=== PATIENT | female | born 1960 ===

== ENCOUNTER 2024-12-27 13:52 | Outpatient (NON) | payer OTHER, SELFPAY ==
--- OUTSIDE RECORDS SUMMARY | 2024-12-27 16:12 | XMS_ITS | Referral Summary ---
Author Organization [facility] Address [address] [place] [id number] Care Team Providers Care Anesthesiologist Name Role Phone Klarissa Carr MD Primary Care Provider [phone] Encounters Date Type Department Care Team Description 10/29/2024 6:50 AM NANOFABRICATION SPECIALIST Lab [facility] Lab [address] [place] [phone] from Last 3 Months Allergies No known active allergies Medications No known medications Active Problems Problem Noted Date Diagnosed Date Encounter for screening colonoscopy 04/20/2024 Social History Tobacco Use Types Packs/Day Years Used Date Smoking Tobacco: Never Smokeless Tobacco: Never Tobacco Cessation:Counseling Given: Not Answered AUDIT-C Answer Date Recorded Q1: How often do you have a drink containing alcohol? Never 05/14/2024 Q2: How many drinks containi ng alcohol do you have on a typical day when you are drinking? Patient does not drink Q3: How often do you have si x or more drinks on one occasion? Never 05/14/2024 Personal Safety Answer Date Recorded Have you ever been in or are you currently in a harmful physical or emotional relationship or is someone making you feel afraid or unsafe? Denies 05/19/2024 Comments No Sex and Gender Information Value Date Recorded Sex Assigned at Not on file Legal Sex Female 7:45 PM NANOFABRICATION SPECIALIST Gender Identity Not on file Sexual Orientation Not on file Last Filed Vital Signs Vital Sign Reading Time Taken Comments Blood Pressure 116/80 05/19/2024 12:10 PM CDT Pulse 83 05/19/2024 12:10 PM CDT Temperature 36.1 C (97 F) 05/19/2024 11:56 AM CDT Respiratory Rate 18 05/19/2024 12:10 PM CDT Oxygen Saturation 99% 05/19/2024 12:10 PM CDT Inhaled Oxygen Concentration - - Weight 79.4 kg (175 lb) 05/19/2024 9:04 AM CDT Height 165.1 cm (5' 5 ) 05/19/2024 9:04 AM CDT Body Mass Index 29.12 05/19/2024 9:04 AM CDT Plan of Treatment Not on file Procedures Procedure Name Priority Date/Time Associated Diagnosis Comments EGFR Routine 10/29/2024 6:57 AM NANOFABRICATION SPECIALIST COMPREHENSIVE METABOLIC PANEL Routine 10/29/2024 6:57 AM NANOFABRICATION SPECIALIST LIPID PANEL Routine 10/29/2024 6:57 AM NANOFABRICATION SPECIALIST COLONOSCOPY 05/19/2024 11:33 AM CDT SCREENING MAMMOGRAM BILATERAL W FLAVIO Schedule Routine, Read Routine (OP Routine) 02/21/2023 3:58 PM CDT Screening mammogram, encounter for from Last 3 Months or Most Recently Relevant to Health Maintenance Results * eGFR (10/29/2024 6:57 AM NANOFABRICATION SPECIALIST) eGFR 73 >=60 mL/min/1. 73 m2 Comment: Interpretive Data Reference Interval Normal >/= 90 mL/min/1.73m2 Mildly decreased* 60 - 89 mL/min/1.73m2 Mildly to moderately decreased 45 - 59 mL/min/1.73m2 Moderately to severely decreased 30 - 44 mL/min/1.73m2 Severely decreased 15 - 29 mL/min/1.73m2 Kidney Failure < 15 mL/min/1.73m2 *Relative to young adult level Estimated glomerular filtration rate is determined by the 2020 CKD-EPI equation recommended by the National Kidney Foundation (A Unifying Approach to GFR Estimation: Recommendations of the NKF-ASK Task Force on Reassessing the Inclusion of Race in Diagnosing Kidney Disease, JASN 2020). The CKD-EPI equation should not be used for patients with unstable renal function and has not been validated in children and those over 70. Current interpretive data was last reviewed 2021. Blood 10/29/2024 6:57 AM NANOFABRICATION SPECIALIST 10/29/2024 7:24 AM NANOFABRICATION SPECIALIST us Klarissa Carr MD LAB BLOOD ORDERABLES Final Res ult TE[facility] [address] [facility] Department [place] [address] * (ABNORMAL) Lipid panel (10/29/2024 6:57 AM NANOFABRICATION SPECIALIST) Cholesterol 218(H) 30 - 199 mg/dL Comment: Interpretive Data Ages < or = 19 years Acceptable: <170 mg/dL Borderline high: 170-199 mg/dL High: >or= 200 mg/dL Ages > or = 20 years Desirable: <200 mg/dL Borderline high: 200-239 mg/dL High: >or= 240 mg/dL Literature References: 1. Expert Panel on Integrated Guidelines for Cardiovascular Health and Risk Reduction in Children and Adolescents. Pediatrics 2011;128:S213 2. NCEP Expert Panel. Circulation 2004;110:227 Current Interpretive Data was last revised on 2018. Triglycerides 65 <=149 mg/dL TEJA Comment: Interpretive Data Ages < or = 9 years Acceptable: <75 mg/dL Borderline high: 75-99 mg/dL High: >or= 100 mg/dL Ages 10 to 20 years Acceptable: <90 mg/dL Borderline high: 90-129 mg/dL High: >or= 130 mg/dL Ages > or = 20 years Desirable: <150 mg/dL Borderline high: 150-199 mg/dL High: 200-499 mg/dL Very high: >or= 499 mg/dL Literature References: 1. Expert Panel on Integrated Guidelines for Cardiovascular Health and Risk Reduction in Children and Adolescents. Pediatrics 2011;128:S213 2. NCEP Expert Panel. Circulation 2004;110:227 Current Interpretive Data was last revised on 2018. HDL 63 >=40 mg/dL TEJA Comment: Interpretive Data Ages < or = 19 years Acceptable: >45 mg/dL Borderline low: 40-45 mg/dL Low: <40 mg/dL Ages > or = 20 years Desirable: >or= 60 mg/dL Low: <40 mg/dL Literature References: 1. Expert Panel on Integrated Guidelines for Cardiovascular Health and Risk Reduction in Children and Adolescents. Pediatrics 2011;128:S213 2. NCEP Expert Panel. Circulation 2004;110:227 Current Interpretive Data was last revised on 2018. LDL, calculated 144(H) <=129 mg/dL TEJA Comment: Interpretive Data Ages < or = 19 years Acceptable: <110 mg/dL Borderline high: 110-129 mg/dL High: >or= 130 mg/dL Ages > or = 20 years Optimal: <100 mg/dL Near optimal: 100-129 mg/dL Borderline high: 130-159 mg/dL High: >160 mg/dL Calculated using the Kalpesh LDL-C estimating equation. This equation was implemented on 2024. Prior to this date LDL-C was estimated using the Friedewald equation. Literature References: 1. Expert Panel on Integrated Guidelines for Cardiovascular Health and Risk Reduction in Children and Adolescents. Pediatrics 2011;128:S213 2. NCEP Expert Panel. Circulation 2004;110:227 3. Kalpesh Major et al. BERNARDA Cardiol. 2019January 20;5(5):540-548. doi: 10.1001/jamacardio.2020.0013 Current Interpretive Data was last revised on 2024. Non-HDL Cholesterol 155 mg/dL TEJA Comment: Interpretive Data Ages < or = 19 years Acceptable: <120 mg/dL Borderline high: 120-144 mg/dL High: >145 mg/dL Ages > or = 20 years When triglycerides are >200 mg/dL, Non-HDL cholesterol is a secondary target of therapy with treatment goals that are 30 mg/dL greater than the LDL cholesterol target. Literature References: 1. Expert Panel on Integrated Guidelines for Cardiovascular Health and Risk Reduction in Children and Adolescents. Pediatrics 2011;128:S213 2. NCEP Expert Panel. Circulation 2004;110:227 Current Interpretive Data was last revised on 2018. Chol/HDL ratio 3 TEJA Blood 10/29/2024 6:57 AM NANOFABRICATION SPECIALIST 10/29/2024 7:24 AM NANOFABRICATION SPECIALIST Klarissa Carr MD LAB BLOOD ORDERABLES Final Res ult Performing Organization Address [facility] Co de Phone Number TEJA [address] [facility] [place] [address] * (ABNORMAL) Comprehensive metabolic panel (10/29/2024 6:57 AM NANOFABRICATION SPECIALIST) Sodium 140 135 - 145 mmol/L Potassium, pl 3.8 3.3 - 4.9 mmol/L [facility] Chloride 105 97 - 110 mmol/L [facility] CO2 28 22 - 32 mmol/L [facility] Anion gap 7 2 - 15 mmol/L [facility] BUN 17 6 - 25 mg/dL [facility] Creatinine 0.89 0.60 - 1.10 mg/dL [facility] Glucose 93 70 - 199 mg/dL [facility] Comment: Interpretive Data Fasting glucose >/= 126 mg/dl is diagnostic for diabetes. Fasting is defined as no caloric intake for at least 8 hours. Fasting glucose between 100 mg/dl to 125 mg/dl is diagnostic of prediabetes. In a patient with classic symptoms of hyperglycemia or hyperglycemic crisis, a random glucose >/= 200 mg/dl is diagnostic for diabetes. In the absence of unequivocal hyperglycemia, results should be confirmed by repeat testing. The classification and Diagnosis of Diabetes Diabetes Care 202; 46: S19-S40. Current interpretive data was last revised 2022. Calcium 9.1 8.5 - 10.3 mg/dL [facility] Bilirubin, total 0.3 0.1 - 1.2 mg/dL [facility] Protein, pl 6.8 6.5 - 8.5 g/dL [facility] Albumin 3.9 3.5 - 5.0 g/dL [facility] Alk phos 136(H) 40 - 130 Units/L [facility] ALT 40 7 - 45 Units/L [facility] AST 31 10 - 45 Units/L [facility] Blood 10/29/2024 6:5 7 AM NANOFABRICATION SPECIALIST 10/29/2024 7:24 AM NANOFABRICATION SPECIALIST Klarissa Carr MD LAB BLOOD ORDERABLES Final Res ult Performing Organization Address [facility] Co de Phone Number [facility] [address] [facility] [place] [address] * Colonoscopy (05/19/2024 11:33 AM CDT) Anatomical Region Laterality Modality Other Narrative Procedure Note Anatoly Valero MD - 05/19/2024 11:33 AM CDT [facility] GI ENDOSCOPY Patient Name: Melissa Obrien Procedure Date: 05/19/2024 11:33 AM Date of : 1960 Admit Type: Outpatient Age: 63 Gender: Female Attending MD: Anatoly Valero M.D. Room: [facility] ENDOSCOPY ROOM 06 Note Status: Finalized Procedure: Colonoscopy Indications: Screening for colorectal malignant neoplasm Referring MD: Providers: Anatoly Valero M.D. Medicines: Monitored Anesthesia Care Complications: No immediate complications. Estimated Blood Loss: Estimated blood loss: none. Procedure: Pre-Anesthesia Assessment: - Prior to the procedure, a History and Physicalwas performed, and patient medications and allergieswere reviewed. The risks and benefits of the procedureand the sedation options and risks were discussed withthe patient. All questions were answered and informed consent was obtained. Patient identification and proposed procedure were verified. After reviewingthe risks and benefits, the patient was deemed in satisfactory condition to undergo the procedure.The anesthesia plan was to use monitored anesthesiacare (MAC). Immediately prior to administration of medications, the patient was re-assessed foradequacy to receive sedatives. The heart rate, respiratory rate, oxygen saturations, blood pressure, adequacyof pulmonary ventilation, and response to care were monitored throughout the procedure. The physical status of the patient was re-assessed after the procedure. The benefits, risks and alternatives of theprocedure and sedation were discussed and informed consentwas obtained. All questions were answered. Please referto the signed informed consent document in the medical record. The scope was passed under direct vision.The [id number] colonoscope was introduced through theanus and advanced to the cecum, identified byappendiceal orifice and ileocecal valve. The colonoscopy was performed without difficulty. The patient tolerated the procedure well. The quality of the bowel preparation was adequate. Scope withdrawal time was12 minutes. Prep was administered in a split dose. Findings: The perianal and digital rectal examinations were normal. A diminutive polyp was found in the cecum. The polyp was removed witha cold biopsy forceps. Resection and retrieval were complete. A diminutive polyp was found in the transverse colon. The polyp was removed with a cold biopsy forceps. Resection and retrieval were complete. Two polyps were found in the sigmoid colon. The polyps werediminutive in size. These polyps were removed with a cold biopsy forceps.Resection and retrieval were complete. A diminutive polyp was found in the rectum. The polyp was removedwith a cold biopsy forceps. Resection and retrieval were complete. A few small-mouthed diverticula were found in the sigmoid colon. Non-bleeding internal hemorrhoids were found during retroflexion. The hemorrhoids were small. The exam was otherwise without abnormality. Impression: - One diminutive polyp in the cecum, removed with a cold biopsy forceps. Resected and retrieved. - One diminutive polyp in the transverse colon, removed with a cold biopsy forceps. Resected and retrieved. - Two diminutive polyps in the sigmoid colon,removed with a cold biopsy forceps. Resected andretrieved. - One diminutive polyp in the rectum, removed witha cold biopsy forceps. Resected and retrieved. - Diverticulosis in the sigmoid colon. - Non-bleeding internal hemorrhoids. - The examination was otherwise normal. Recommendation: - Patient has a contact number available for emergencies. The signs and symptoms of potential delayed complications were discussed with thepatient. Return to normal activities tomorrow. Written discharge instructions were provided to thepatient. - High fiber diet. - Continue present medications. - Await pathology results. - Repeat colonoscopy in 5 years for surveillance. Anatoly Valero M.D. Anatoly Valero M.D. 05/19/2024 11:53:35 AM . Number of Addenda: 0 Note Initiated On: 05/19/2024 11:33 AM Recognized by the [place] [employer] Gastrointestinal [employer]oscopy for promoting quality in endoscopy us Anatoly Valero MD ENDOSCOPY PROCEDURES Final Resul t * Screening Mammogram Bilateral W Flavio (02/21/2023 3:58 PM CDT) Anatomical Region Laterality Modality Breast Bilateral Mammography Impressions 02/21/2023 4:03 PM CDT BI-RADS ATLAS category (overall): 1 - Negative There is no mammographic evidence of malignancy. A 1 year screening mammogram is recommended. The patient has been or will be contacted. We recommend annual screening mammography for women at average risk of breast cancer beginning at age 40, based on guidelines of the [place] [employer] (ACR Practice Parameter for the Performance of Screening and Diagnostic Mammography) and [place] [employer] Obstetricians [employer] Gynecologists. For women with and elevated risk of breast cancer, please refer to the ACR Practice Parameter for specific screening recommendations. The patient will be entered into a reminder system with a target due date of 1 year for her next screening exam. Narrative 02/21/2023 4:03 PM CDT Screening Mammogram Bilateral W Flavio: 02/21/23 The study was acquired using full field digital technology and interpreted from soft copy. 2D digital mammographic views, as well as 3D digital tomosynthesis were performed in the CC and MLO projections. CLINICAL: Screening mammogram, encounter for. No relevant medical history has been documented for this patient. History of breast cancer in Neg Hx. COMPARISONS: 01/09/2022 Screening Mammogram Bilateral W Flavio 08/14/2020 Screening Mammogram Bilateral W Flavio 08/05/2019 Screening Mammogram Bilateral W Flavio 07/01/2018 Screening Mammogram Bilateral W Flavio BREAST TISSUE: The breasts have scattered areas of fibroglandular density. FINDINGS: No suspicious masses, suspicious calcifications, or other suspicious findings are seen within either breast. There has been no suspicious change. Klarissa Carr MD IM MAMMO PROCEDURES Final Res ult from Last 3 Months or Most Recently Relevant to Health Maintenance Insurance [facility] Care Teams Anesthesiologist Relationship Specialty Start Date End Date Klarissa Carr MD [address] [facility] [address] [place] [address] PCP - General 07/09/19
--- OUTSIDE RECORDS SUMMARY | 2024-12-27 16:12 | XMS_ITS | Clinical Summary ---
Author Organization [facility] Address [address] [place] [id number] Care Team Providers Care Bell Ringer Name Role Phone Klarissa Carr MD Primary Care Provider [phone] Allergies No known active allergies Medications No known medications Active Problems Problem Noted Date Diagnosed Date Encounter for screening colonoscopy 04/20/2024 Encounters Date Type Department Care Team Description 10/29/2024 6:[address] MANAGER Lab [facility] [place] [address] from Last 3 Months Surgical History Surgery Date Site/Laterality Comments COLONOSCOPY x 2 Medical History Medical History Date Comments Motion sickness Family History Medical History Relation Name Comments Breast cancer Neg Hx Social History Tobacco Use Types Packs/Day Years [...] on file Legal Sex Female 7:[address]NA[address] Gender Identity Not on file Sexual Orientation Not on file Obstetrics History Para Term AB IAB SAB Ectopic Multiple Livin g Live Births 3 3 3 Date Outcome GA Total Labor Labor/2nd/3rd Weight Sex Type Anes PTL Altagracia A1 A5 Name Clin Term Term Term Last Filed Vital Signs Vital Sign Reading [...] 05/19/2024 9:04 AM CDT Plan of Treatment Health Maintenance Due Date Last Done Comments Cervical Cancer Screening 1960 Depression Screening 1960 Hepatitis C Screening 1960 DTaP/Tdap/Td Vaccine (1 - Tdap) 12/05/1971 Hepatitis B Screening 1978 Regular Well Visit/Exam 18-64 1978 Zoster Vaccine (1 of 2) 2010 Breast Cancer Screening-Mammogram 02/22/2024 02/21/2023, 01/09/2022, 08/14/2020, Additional history exists Influenza Vaccine (#1) 2024 Colon Cancer Screening-Colonoscopy 05/19/2029 05/19/2024 Colon Cancer Screening-CT Colonography Discontinued 05/19/2024 Colon Cancer Screening-DNA Stool Discontinued 05/19/2024 Colon Cancer Screening-FIT Discontinued 05/19/2024 Colon Cancer Screening-Sigmoidoscopy Discontinued 05/19/2024 Pneumococcal vaccine <65 Aged Out No longer eligible based on patient's age to complete this topic Procedures Procedure Name Priority Date/Time Associated Diagnosis Comments EGFR Routine 10/29/2024 6:[address] MANAGER COMPREHENSIVE METABOLIC PANEL Routine 10/29/2024 6:[address] MANAGER LIPID PANEL Routine 10/29/2024 6:[address] MANAGER COLONOSCOPY 05/19/2024 11:33 AM CDT SCREENING MAMMOGRAM BILATERAL W FLAVIO Schedule Routine, Read Routine (OP Routine) 02/21/2023 3:58 PM CDT Screening mammogram, encounter for from Last 3 Months or Most Recently Relevant to Health Maintenance Results * eGFR (10/29/2024 6:[address] MANAGER) eGFR 73 >=60 mL/min/1. 73 m2 Comment: [...] last reviewed 2021. Blood 10/29/2024 6:[address] MANAGER 10/29/2024 7:[address]NA[address] Klarissa Carr MD LAB BLOOD ORDERABLES Final Res ult [facility] [address] [facility] Department [place] [address] * (ABNORMAL) Lipid panel (10/29/2024 6:[address] MANAGER) Cholesterol 218(H) 30 - 199 mg/dL Comment: [...] Pediatrics 2011;128:S213 2. NCEP Expert Panel. Circulation 2003;110:227 Current Interpretive Data was last revised on 2018. LDL, calculated 144(H) <=129 mg/dL [facility] Comment: Interpretive Data Ages < or = 19 years Acceptable: <110 mg/dL Borderline high: 110-129 mg/dL High: >or= 130 mg/dL Ages > or = 20 years Optimal: <100 mg/dL Near optimal: 100-129 mg/dL Borderline high: 130-159 mg/dL High: >160 mg/dL Calculated using the Posey LDL-C estimating equation. This equation was implemented on 2024. Prior to this date LDL-C was estimated using the Friedewald equation. Literature References: 1. Expert Panel on Integrated Guidelines for Cardiovascular Health and Risk Reduction in Children and Adolescents. Pediatrics 2011;128:S213 2. NCEP Expert Panel. Circulation 2004;110:227 3. Kalpesh M et al. BERNARDA Cardiol. 2020 January 20;5(5):540-548. doi: 10.1001/jamacardio.2020.0013 Current Interpretive Data was last revised on 2024. Non-HDL Cholesterol 155 mg/dL [facility] Comment: Interpretive Data Ages < or = [...] last revised on 2018. Chol/HDL ratio 3 [facility] Blood 10/29/2024 6:[address] MANAGER 10/29/2024 7:[address]NA[address] Klarissa Carr MD LAB BLOOD ORDERABLES Final Res ult [facility]JA [address] [facility] Department [place] [address] * (ABNORMAL) Comprehensive metabolic panel (10/29/2024 6:[address] MANAGER) Sodium 140 135 - 145 mmol/L Potassium, pl 3.8 3.3 - 4.9 mmol/L [facility] Chloride 105 97 - 110 mmol/L [facility] CO2 28 22 - 32 mmol/L [facility] Anion gap 7 2 - 15 mmol/L [facility] BUN 17 6 - 25 mg/dL [facility] Creatinine 0.89 0.60 - 1.10 mg/dL [facility] Glucose 93 70 - 199 mg/dL [facility] Comment: Interpretive Data Fasting glucose >/= 126 [...] classification and Diagnosis of Diabetes Diabetes Care 2021; 46: S19-S40. Current interpretive data was last revised 2022. Calcium 9.1 8.5 - 10.3 mg/dL [facility] Bilirubin, total 0.3 0.1 - 1.2 mg/dL [facility] Protein, pl 6.8 6.5 - 8.5 g/dL [facility] Albumin 3.9 3.5 - 5.0 g/dL [facility] Alk phos 136(H) 40 - 130 Units/L [facility] ALT 40 7 - 45 Units/L [facility] AST 31 10 - 45 Units/L [facility] Blood 10/29/2024 6:[address]NAGER 10/29/2024 7:[address] MANAGER us Klarissa Carr MD LAB BLOOD ORDERABLES Final Res ult [facility] [address] [facility] Department [place] [address] * Colonoscopy (05/19/2024 11:33 AM CDT) Anatomical Region Laterality Modality Other Narrative Procedure Note Anatoly Valero MD - 05/19/2024 11:33 AM CDT [facility] GI ENDOSCOPY Patient Name: Melissa Obrien Procedure Date: 05/19/2024 11:33 AM Date of : 1960 Admit Type: Outpatient Age: 63 Gender: Female Attending MD: Anatoly Valero M.D. Room: [facility] ENDOSCOPY ROOM 06 Note Status: Finalized Procedure: [...] The scope was passed under direct vision.The [id number] colonoscope was introduced through theanus and advanced [...] On: 05/19/2024 11:33 AM Recognized by the [employer] Society for Gastrointestinal Endoscopy for promoting quality [...] age 40, based on guidelines of the [employer] (ACR Practice Parameter for the Performance of Screening and Diagnostic Mammography) and [employer]etric[employer] Gynecologists. For women [...] been no suspicious change. Klarissa Carr MD IMG MAMMO PROCEDURES Final Res ult from Last 3 Months or Most Recently Relevant to Health Maintenance Insurance [facility]ANS Address: [facility] [id number] [place] [address] [facility] EM[employer] PL[employer] Address: [facility] [address] [place] [address] Care Teams Bell Ringer Relationship Specialty Start Date End Date Klarissa Carr MD [address] [facility] [address] [place], [place] [id number] PCP - General 07/09/19
== END 2024-12-27 13:53 | disposition home or self-care (01) ==
DX: D18.09 Hemangioma of other sites (principal); K11.6 Mucocele of salivary gland
CPT/HCPCS: 88305